=== PATIENT | male | born 1990 | race African-American/Black ===

== ENCOUNTER 2016-07-29 23:17 | Emergency (ER) | payer SELFPAY ==
[~2016-07-29] VITALS: Ht 190.5 cm; Wt 80.7 kg
[2016-07-29 23:26] VITALS: BP 144/94
[2016-07-29] MEDS ORDERED: HYDR25TA PO (23:52)
--- NOTE | 2016-07-29 23:52 | PHYS DOC ---
Past Medical History Past Medical History: No Pertinent History Past Surgical History: No Surgical History Alcohol Use: None Drug Use: None Adult General Chief Complaint Chief Complaint: INSECT BITE HPI HPI Patient is a 26 year old male with no medical history who presents with insect bites throughout his body that he noted yesterday. Patient is in the ED with family members and they state they sprayed the house for bed bugs couple days ago. Review of Systems Review of Systems Constitutional: Denies fever or chills [] Eyes: Denies change in visual acuity, redness, or eye pain [] Musculoskeletal: Denies back pain or joint pain [] Integument: bed bug bites Neurologic: Denies headache, focal weakness or sensory changes [] Endocrine: Denies polyuria or polydipsia [] Allergies Allergies Allergies Coded Allergies Type Severity Reaction Last Updated Verified Penicillins Allergy Unknown 07/29/16 Yes Physical Exam Physical Exam Constitutional: Well developed, well nourished, no acute distress, non-toxic appearance. [] HENT: Normocephalic, atraumatic, bilateral external ears normal, oropharynx moist, no oral exudates, nose normal. [] Eyes: PERRLA, EOMI, conjunctiva normal, no discharge. [] Neck: Normal range of motion, no tenderness, supple, no stridor. [] Cardiovascular:Heart rate regular rhythm, no murmur [] Lungs & Thorax: Bilateral breath sounds clear to auscultation [] Abdomen: Bowel sounds normal, soft, no tenderness, no masses, no pulsatile masses. [] Skin: Patient has small amount of scattered erythematous macular rash on bilateral upper and lower extremities consistent with bedbugs. On exam he had multiple insects crawling on him. Current Patient Data Vital Signs Vital Signs Date Time Temp Pulse Resp B/P Pulse Ox O2 Delivery O2 Flow Rate FiO2 07/29/16 23:26 97.9 89 20 95 Room Air 97.9 EKG EKG [] Radiology/Procedures Radiology/Procedures [] Course & Med Decision Making Course & Med Decision Making Pertinent Labs and Imaging studies reviewed. (See chart for details) Patient has bedbug bites. He arrived in the ED with bed bugs crawling on him as well. Family states they have already sprayed the house couple days ago. I recommended they re-spray the house again. Recommended good hygiene. Discharged with Atarax. Provided tire repairman for follow-up. Cassidy Disclaimer Dragon Disclaimer This electronic medical record was generated, in whole or in part, using a voice recognition dictation system. Departure Departure Impression: Primary Impression: Bed bug bite Disposition: HOME, SELF-CARE Condition: STABLE Referrals: NO PCP (PCP) KRISTINE DODD MD please follow up with the provided tire repairman in 2 weeks Patient Instructions: Bedbugs Additional Instructions: You have bed bug bites throughout your body. Please go home shower and maintain very good hygiene. Scripts Hydroxyzine Hcl 25 Mg Tablet1-2 Tab PO TID PRN ITCHING #90 TAB Ref 2 Prov:JILLIAN MCCALL APRN 07/29/16 Problem Qualifiers Primary Impression: Bed bug bite Encounter type: initial encounter Qualified Code: W57.XXXA - Bitten or stung by nonvenomous insect and other nonvenomous arthropods, initial encounter JILLIAN MCCALL APRN Jul 29, 2016 23:52
== END 2016-07-30 00:10 | disposition home or self-care (01) ==
LOC: ER 23:17
DX: S80.862A Insect bite (nonvenomous), left lower leg, initial encounter (principal); S80.861A Insect bite (nonvenomous), right lower leg, initial encounter; S40.862A Insect bite (nonvenomous) of left upper arm, initial encounter; S40.861A Insect bite (nonvenomous) of right upper arm, initial encounter; Z88.0 Allergy status to penicillin; W57.XXXA Bitten or stung by nonvenomous insect and other nonvenomous arthropods, initial encounter; Y93.89 Activity, other specified; Y92.89 Other specified places as the place of occurrence of the external cause; Y99.8 Other external cause status
CPT/HCPCS: 99283